=== PATIENT | female | born 1950 | race Caucasian/White ===

== ENCOUNTER 2021-04-14 08:43 | Day surgery (SDC) | payer MEDICARE, BC ==
[~2021-04-14 08:43] MED LIST: LIPITOR20 M1 PO; NEURIVA1 CAP PO; PROBIOTIC1 TAB PO; PROTONIX40 M2 PO; VITAMIN D2400 UNIT PO
[2021-04-14 10:31] VITALS: BP 112/61
--- NOTE | 2021-04-14 14:56 | NUR ---
PER PHYSICIAN, PATIENT NOTIFIED OF FINDINGS AND RECOMMENDATIONS PER COLONOSCOPY REPORT 04/14/21, PATIENT AGREED WITH MD RECOMMENDATIONS, STATED PROCEDURE WENT WELL, HAS NO CONCERNS AT TIME OF CALL, STATES IS RESTING AT HOME. ADVISED NO FURTHER COLONOSCOPIES WARRANTED UNLESS HAS NEW CONCERNS AND CAN BE REFERRED AGAIN. PATIENT AGREED. REPORT FORWARDED TO PRIMARY CARE FOR CONTINUITY OF CARE.
== END 2021-04-14 10:48 | disposition home or self-care (01) ==
LOC: ENDO 08:43
PROVIDERS: ATTEND Surgery
PROC: 0DJD8ZZ Inspection of Lower Intestinal Tract, Via Natural or Artificial Opening Endoscopic (ICD-10-PCS; principal; 2021-04-14)
DX: Z12.11 Encounter for screening for malignant neoplasm of colon (principal); K57.30 Diverticulosis of large intestine without perforation or abscess without bleeding; K64.8 Other hemorrhoids